=== PATIENT | male | born 1985 | race Two or more races ===

== ENCOUNTER 2022-01-08 14:02 | Emergency (ER) | payer SELFPAY ==
[~2022-01-08] VITALS: Ht 167.6 cm; Wt 63.5 kg
--- NOTE | 2022-01-08 14:21 | NUR ---
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 Fingers injury". Rates pain 03/22. Will continue to monitor the patient.
--- NOTE | 2022-01-08 14:52 | NUR ---
X-RAY TECH AT THE BEDSIDE
[2022-01-08] MEDS ORDERED: TDAP [DIPH/PERTUSSIS/TET] 0.5 ML VIAL IM ONE ×2 (14:58→15:00)
[2022-01-08] MEDS ORDERED: CLIN300C12 PO (16:02)
[2022-01-08 16:26] VITALS: BP 132/64
--- NOTE | 2022-01-08 16:26 | NUR ---
Patient discharged to home in stable condition. Written and verbal after care instructions given. Patient verbalizes understanding of instruction.
== END 2022-01-08 16:26 | disposition home or self-care (01) ==
LOC: ER 14:08
DX: S61.216A Laceration without foreign body of right little finger without damage to nail, initial encounter (principal); S60.415A Abrasion of left ring finger, initial encounter; S60.413A Abrasion of left middle finger, initial encounter; Z79.899 Other long term (current) drug therapy; W22.8XXA Striking against or struck by other objects, initial encounter; Y93.89 Activity, other specified; Y92.89 Other specified places as the place of occurrence of the external cause; Y99.8 Other external cause status
CPT/HCPCS: 12001; 73130 ×2; 90471; 90715; 99283; A6403